=== PATIENT | female | born 1980 | race Caucasian/White ===

== ENCOUNTER 2018-04-04 21:27 | Emergency (ER) | payer MEDICAID ==
[~2018-04-04] VITALS: Ht 165.1 cm; Wt 61.2 kg
[~2018-04-04 21:27] MED LIST: CEPH500 PO; CLIN300 PO; CYCL10 PO; HYDACE5 PO; IBUP800; IBUP800 PO; META800 PO; OXYACE5T PO; Percocet 5-3251 EACH PO; RXHYDACE PO; RXOXYACE PO; SULTRIDS PO
== END 2018-04-04 23:16 | disposition home or self-care (01) ==
LOC: ER 21:27
DX: T40.1X1A Poisoning by heroin, accidental (unintentional), initial encounter (principal); Z88.5 Allergy status to narcotic agent; Z79.2 Long term (current) use of antibiotics; F17.210 Nicotine dependence, cigarettes, uncomplicated
CPT/HCPCS: 93005; 93010; 99283

== ENCOUNTER 2019-08-21 12:51 | Emergency (ER) | payer OTHER ==
[~2019-08-21] VITALS: Ht 170.2 cm; Wt 56.7 kg
[~2019-08-21 12:51] MED LIST changes: +ACET325 PO; +ASCO500 PO; +Augmentin 875-1 EACH PO; +Ferrous Sulfat325 M2 PO; +IBUP400 PO; +ONDA4ODT MM; +SACC250C PO
[2019-08-21 13:24] LABS: BASOPHILS ABSOLUTE AUTO 0.03 K/mm3 (0.00-0.23); BASOPHILS PERCENT AUTO 0 % (0-2); EOSINOPHILS ABSOLUTE AUTO 0.03 K/mm3 (0.00-0.68); EOSINOPHILS PERCENT AUTO 0 % (0-6); Hematocrit 33.5 % (33.0-51.0); IMMATURE GRAN ABSOLUTE AUTO 0.07 K/mm3 (0.00-0.10); IMMATURE GRAN PERCENT AUTO 1 % (0-1); LYMPHOCYTES ABSOLUTE AUTO 1.18 K/mm3 (0.84-5.20); LYMPHOCYTES PERCENT AUTO 12 % (21-46); MONOCYTES ABSOLUTE AUTO 1.14 K/mm3 (0.16-1.47); MONOCYTES PERCENT AUTO 11 % (4-13); Mean Corpuscular HGB Conc 32.8 g/dL (31.5-36.5); Mean Corpuscular Volume 82 fL (80-100); Mean Platelet Volume 12.1 fL (9.1-12.4); NEUTROPHILS ABSOLUTE AUTO 7.81 K/mm3 (1.96-9.15); NEUTROPHILS PERCENT AUTO 76 % (41-73); Platelet Count 112 K/mm3 (150-400); RDW Coefficient Variation 12.8 % (11.7-14.2); RDW Standard Deviation 38.6 fL (35.1-46.3); Red Blood Cell Count 4.07 M/mm3 (3.80-5.20); White Blood Cell Count 10.26 K/mm3 (4.00-11.30)
[2019-08-21 13:43] LABS: Alanine Aminotransfer (ALT/SGP 88 U/L (12-78); Albumin/Globulin Ratio 0.6 (0.8-1.8); Alk Phos 63 U/L (50-136); Anion Gap 8 mmol/L (6-16); Aspartate Aminotrans (AST/SGOT 42 U/L (12-37); Bilirubin, Total 0.3 mg/dL (0.1-1.0); Blood Urea Nitrogen 11 mg/dL (8-24); Bun/Creatinine Ratio 19.4 (12.0-20.0); CO2, Blood 24 mmol/L (21-32); Calcium, Blood 8.4 mg/dL (8.5-10.1); Chloride, Blood 100 mmol/L (98-108); Creatinine, Blood 0.57 mg/dL (0.40-1.00); Globulin, Blood 4.8 g/dL (2.2-4.0); Glomerular Filtration Rate >60 (60-); Glucose, Blood 105 mg/dL (70-99); Potassium, Blood 3.5 mmol/L (3.5-5.5); Sodium, Blood 132 mmol/L (136-145); Total Protein, Blood 7.8 g/dL (6.4-8.2); Troponin I <0.015 ng/mL (0.000-0.040)
[2019-08-21] MEDS ORDERED: Keflex500 MG PO (15:19)
[2019-08-21] MEDS ORDERED: Bactrim Ds Tab1 EACH PO (15:19)
== END 2019-08-21 16:53 | disposition home or self-care (01) ==
LOC: ER 12:51
PROVIDERS: Emergency Medicine
DX: L03.113 Cellulitis of right upper limb (principal); F11.10 Opioid abuse, uncomplicated; J11.1 Influenza due to unidentified influenza virus with other respiratory manifestations; F17.210 Nicotine dependence, cigarettes, uncomplicated
CPT/HCPCS: 36415; 71046; 73090; 80053; 84484; 85025; 93005; 93010; 96365; 96375; 99285-25; J0572; J0690; J7030

== ENCOUNTER 2020-05-24 03:26 | Emergency (ER) | payer OTHER ==
[~2020-05-24] VITALS: Ht 170.2 cm; Wt 61.2 kg
[~2020-05-24 03:26] MED LIST changes: +Bactrim Ds Tab1 EACH PO; +Keflex500 MG PO
[2020-05-24] MEDS ORDERED: CEPH500 PO (06:18)
[2020-05-24] MEDS ORDERED: Bactrim Ds Tab1 EACH PO (06:18)
== END 2020-05-24 06:38 | disposition home or self-care (01) ==
LOC: ER 03:26
DX: L03.031 Cellulitis of right toe (principal); I80.02 Phlebitis and thrombophlebitis of superficial vessels of left lower extremity; F17.210 Nicotine dependence, cigarettes, uncomplicated; Z86.14 Personal history of Methicillin resistant Staphylococcus aureus infection; Z98.1 Arthrodesis status
CPT/HCPCS: 93971; 99284-25; A9270-GY

== ENCOUNTER → 2022-04-19 | Outpatient (CLI) | payer OTHER | END | disposition home or self-care (01) | LOC: LAB SHORT 12:00 → LAB 12:00 | DX: S81.802A Unspecified open wound, left lower leg, initial encounter (principal); L08.9 Local infection of the skin and subcutaneous tissue, unspecified | CPT/HCPCS: 87070; 87077; 87147; 87186; 87205 ==

== ENCOUNTER 2025-06-23 22:47 | Emergency (ER) | payer OTHER ==
[~2025-06-23] VITALS: Ht 170.2 cm; Wt 68.0 kg
[2025-06-23 22:59] VITALS: BP 107/75
[2025-06-23 23:24] LABS: BASOPHILS ABSOLUTE AUTO 0.03 K/mm3 (0.00-0.23); BASOPHILS PERCENT AUTO 0 % (0-2); EOSINOPHILS ABSOLUTE AUTO 0.02 K/mm3 (0.00-0.68); EOSINOPHILS PERCENT AUTO 0 % (0-6); Hematocrit 36.2 % (33.0-51.0); Hemoglobin 12.0 g/dL (11.5-16.0); IMMATURE GRAN ABSOLUTE AUTO 0.01 K/mm3 (0.00-0.10); IMMATURE GRAN PERCENT AUTO 0 % (0-1); LYMPHOCYTES ABSOLUTE AUTO 1.76 K/mm3 (0.84-5.20); LYMPHOCYTES PERCENT AUTO 26 % (21-46); MONOCYTES ABSOLUTE AUTO 0.42 K/mm3 (0.16-1.47); MONOCYTES PERCENT AUTO 6 % (4-13); Mean Corpuscular HGB Conc 33.1 g/dL (31.5-36.5); Mean Corpuscular Volume 81 fL (80-100); NEUTROPHILS ABSOLUTE AUTO 4.50 K/mm3 (1.96-9.15); NEUTROPHILS PERCENT AUTO 67 % (41-73); NRBC ABSOLUTE 0.00 K/mm3 (0.00-0.02); NRBC Auto 0.0 /100 WBC (0.0-0.2); Platelet Count 122 K/mm3 (150-400); RDW Coefficient Variation 13.5 % (11.7-14.2); RDW Standard Deviation 39.7 fL (35.1-46.3)
[2025-06-23 23:43] LABS: Alanine Aminotransfer (ALT/SGP 21.0 U/L (12-78); Albumin, Blood 3.7 g/dL (3.4-5.0); Albumin/Globulin Ratio 0.8 (0.8-1.8); Anion Gap 12.0 mmol/L (3-11); Aspartate Aminotrans (AST/SGOT 19.0 U/L (12-37); Bilirubin, Total 0.4 mg/dL (0.1-1.0); Blood Urea Nitrogen 17.0 mg/dL (8-24); CO2, Blood 22.0 mmol/L (21-32); Calcium, Blood 8.5 mg/dL (8.5-10.1); Chloride, Blood 109.0 mmol/L (98-108); Creatinine, Blood 0.62 mg/dL (0.40-1.00); Globulin, Blood 4.6 g/dL (2.2-4.0); Glucose, Blood 103.0 mg/dL (70-99); Potassium, Blood 3.3 mmol/L (3.5-5.5); Sodium, Blood 140.0 mmol/L (136-145); Total Protein, Blood 8.3 g/dL (6.4-8.2)
[2025-06-25] MEDS ORDERED: NARCAN4 M1 (12:46)
[2025-06-25] MEDS ORDERED: NALOXONE SL (12:46)
[2025-06-25] MEDS ORDERED: BUPRENORPHINE SL (12:46)
== END 2025-06-24 01:34 | disposition left against medical advice (07) ==
LOC: ER 22:47
PROVIDERS: Student in an Organized Health Care Education/Training Program
DX: R07.89 Other chest pain (principal); R55 Syncope and collapse; R11.0 Nausea; R19.7 Diarrhea, unspecified; Z53.29 Procedure and treatment not carried out because of patient's decision for other reasons
CPT/HCPCS: 71046; 80053; 83690; 84484; 85025; 93005; 93010

== ENCOUNTER 2025-06-24 21:57 | Observation (INO) | payer OTHER ==
[~2025-06-24] VITALS: Ht 170.2 cm; Wt 70.3 kg
[2025-06-24 23:00] LABS: Influenza A, PCR NEGATIVE (NEGATIVE); Influenza B, PCR NEGATIVE (NEGATIVE); Resp Syncytial Virus, PCR NEGATIVE (NEGATIVE); SARS-Cov-2 (COVID-19) PCR, MMC NEGATIVE (NEGATIVE)
[2025-06-25] MEDS ORDERED: Ziprasidone Mesylate 20 MG / Vial IM ONE (00:05)
[2025-06-25 00:55] LABS: Source, Urine Clean Catch
[2025-06-25 01:01] LABS: Bilirubin, Urine Neg (Neg); Color, Urine Amber (P-Yellow); Glucose Qualitative, Urine Neg (Neg); Ketones, Urine 4+ (Neg); Leukocyte Esterase, Urine 1+ (Neg); Protein, Urine 3+ (Neg); Specific Gravity, Urine 1.030 (1.003-1.022); Urobilinogen, Urine 1+ (Normal)
[2025-06-25 01:12] LABS: White Blood Cells, Urine 0-2 /hpf (0-5)
[2025-06-25 01:13] LABS: U Methamphetamine Screen DETECTED
[2025-06-25 01:14] LABS: U Amphetamine Screen DETECTED; U Barbituate Screen Not Detected; U Benzodiazapine Screen DETECTED; U Buprenorphine Screen Not Detected; U Cannabinoids Screen Not Detected; U Cocaine Screen Not Detected; U Methadone Screen Not Detected; U Opiates Screen Not Detected; U Oxycodone Screen Not Detected; U Phencyclidine Screen Not Detected
[2025-06-25] MEDS ORDERED: LORazepam 2 MG/ML 1ML Injection IM ONE (03:05)
[2025-06-25] MEDS ORDERED: Prochlorperazine Edisylate 10 mg Vial IM ONE (05:30)
[2025-06-25] MEDS ORDERED: Ondansetron 4 MG SoluTab SL PRN (10:45)
[2025-06-25] MEDS ORDERED: Buprenorphine HCL/Naloxone HCL 2-0.5MG 1 EA SL ONE (10:45)
[2025-06-25 12:44] VITALS: BP 146/79
[2025-06-25] MEDS ORDERED: NALOXONE SL (12:46)
[2025-06-25] MEDS ORDERED: BUPRENORPHINE SL (12:46)
[2025-06-25] MEDS ORDERED: NARCAN4 M1 (12:46)
== END 2025-06-25 12:54 | disposition home or self-care (01) ==
LOC: ER 21:57 → EOR 21:58
PROVIDERS: Student in an Organized Health Care Education/Training Program; ADMIT Emergency Medicine
DX: F19.139 Other psychoactive substance abuse with withdrawal, unspecified (principal); R45.851 Suicidal ideations; F17.210 Nicotine dependence, cigarettes, uncomplicated
CPT/HCPCS: 81001; 87086; 87637; 96372; 99285; A9270; G0378; J0572; J0780; J2060; J3486